=== PATIENT | female | born 1960 | race American Indian/Alaskan Native ===

== ENCOUNTER 2017-07-06 17:50 | Inpatient (IN) | payer MEDICAID ==
[2017-07-06] MEDS ORDERED: ATIVAN IM ONE (19:07)
[2017-07-06] MEDS ORDERED: HALDOL IM ONE (19:07)
[2017-07-06] MEDS ORDERED: ATIVAN IV ONE (20:20)
[2017-07-06 20:24] LABS: Basophils % (Auto) 0.3 % (0.0-1.8); Eosinophils % (Auto) 0.1 % (0.0-4.3); Hematocrit 40.1 % (30.3-42.9); Hemoglobin 13.3 gm/dl (10.1-14.3); Lymphocytes # (Auto) 2.3 K/mm3 (1.2-5.4); Lymphocytes % (Auto) 16.6 % (13.4-35.0); Mean Corpuscular HGB Conc 33 % (30-34); Mean Corpuscular Hemoglobin 30 pg (28-32); Mean Corpuscular Volume 90 fl (79-97); Monocytes # (Auto) 1.2 K/mm3 (0.0-0.8); Monocytes % (Auto) 8.4 % (0.0-7.3); Platelet Count 212 K/mm3 (140-440); Red Blood Count 4.46 M/mm3 (3.65-5.03); Red Cell Distribution Width 13.4 % (13.2-15.2)
[2017-07-06 20:40] LABS: Albumin 4.1 g/dL (3.9-5); Calcium 9.7 mg/dL (8.4-10.2)
[2017-07-06 21:19] LABS: Bacteria,Urine 1+ /HPF (Negative); Bilirubin,Urine NEG (Negative); Blood,Urine NEG (Negative); Color,Urine Amber (Yellow); Mucus,Urine 1+ /HPF; Nitrite,Urine NEG (Negative)
[2017-07-06 21:30] LABS: Amphetamine Screen,Urine PRESUMPTIVE NEGATIVE; Benzodiazepines Screen,Urine PRESUMPTIVE NEGATIVE; Cannabinoid Screen,Urine PRESUMPTIVE NEGATIVE; Cocaine Screen,Urine PRESUMPTIVE NEGATIVE; Methadone Screen,Urine PRESUMPTIVE NEGATIVE; Opiate Screen,Urine PRESUMPTIVE NEGATIVE
--- NOTE | 2017-07-06 21:53 | Emergency Department Report ---
ED Altered Mental Status HPI - General Chief Complaint: Altered Mental Status Stated Complaint: DEMENTIA EPISODE Time Seen by Provider: 07/06/17 18:49 Source: family, EMS Mode of arrival: Stretcher Limitations: Altered Mental Status - History of Present Illness Initial Comments: This is a 57 y/o female who lives with her daughter, and apparently has a history of dementia, and has not been on her medications for this for over two years, who over the last few days has had worsening of her mental symptoms. The family reports that "she needs help." The patient is not able to give a history. MD Complaint: altered mental status, confusion -: Gradual Severity: severe Context: unknown Associated Symptoms: other (Patient cannot communicate her symptoms) - Related Data Allergies Allergy/AdvReac Type Severity Reaction Status Date / Time No Known Allergies Allergy Unverified 07/06/17 18:48 ED Review of Systems ROS: Stated complaint: DEMENTIA EPISODE Other details as noted in HPI Comment: Unobtainable due to pts medical conditions ED Past Medical Hx - Past Medical History Previous Medical History?: Yes Hx Hypertension: Yes Hx CVA: Yes (2013) Hx Dementia: Yes Additional medical history: heat stroke - Surgical History Past Surgical History?: No - Social History Smoking Status: Unknown if ever smoked Substance Use Type: None ED Physical Exam - General Limitations: Altered Mental Status General appearance: other (shaking, tremors, does not appear to be seizure activity. ) - Head Head exam: Present: atraumatic - Eye Eye exam: Present: normal appearance, PERRL - ENT ENT exam: Present: normal exam - Neck Neck exam: Present: normal inspection - Respiratory Respiratory exam: Present: normal lung sounds bilaterally. Absent: respiratory distress, wheezes, rales, rhonchi - Cardiovascular Cardiovascular Exam: Present: normal rhythm, tachycardia - GI/Abdominal GI/Abdominal exam: Present: soft, diminished bowel sounds - Extremities Exam Extremities exam: Present: normal inspection, full ROM - Back Exam Back exam: Present: normal inspection - Neurological Exam Neurological exam: Present: altered - Skin Skin exam: Present: warm, dry, intact ED Course Vital Signs 07/06/17 07/06/17 07/06/17 18:37 18:50 19:01 Temperature 99 F Pulse Rate 120 H Respiratory 20 Rate Blood Pressure 167/113 167/113 149/118 O2 Sat by Pulse 96 Oximetry 07/06/17 07/06/17 07/06/17 20:21 20:30 20:45 Temperature Pulse Rate Respiratory Rate Blood Pressure 149/118 100/62 108/73 O2 Sat by Pulse 96 96 95 Oximetry 07/06/17 07/06/17 07/06/17 21:00 21:15 21:30 Temperature Pulse Rate Respiratory Rate Blood Pressure 130/88 98/62 99/59 O2 Sat by Pulse 93 95 Oximetry 07/06/17 07/06/17 21:45 22:00 Temperature Pulse Rate Respiratory Rate Blood Pressure 99/63 100/61 O2 Sat by Pulse 96 96 Oximetry - Reevaluation(s) Reevaluation #1: 07/06/17 23:29 Family did leave after initial assessment. No one can give us additional history at this time. 07/07/17 01:08 The patient has an elevated white count and appears to have a UTI. She is not necessarily septic at this time. However, because of her dementia and her lack of treatment of this dementia, I believe it is appropriate to admit the patient at this time. I discussed the case with hospitalist who agrees. - Lab Data Result diagrams: 07/06/17 20:10 07/06/17 20:10 Lab Results 07/06/17 07/06/17 07/06/17 Range/Units 19:00 20:10 20:10 WBC 13.8 H (4.5-11.0) K/mm3 RBC 4.46 (3.65-5.03) M/mm3 Hgb 13.3 (10.1-14.3) gm/dl Hct 40.1 (30.3-42.9) % MCV 90 (79-97) fl MCH 30 (28-32) pg MCHC 33 (30-34) % RDW 13.4 (13.2-15.2) % Plt Count 212 (140-440) K/mm3 Lymph % (Auto) 16.6 (13.4-35.0) % [place] % (Auto) 8.4 H (0.0-7.3) % Eos % (Auto) 0.1 (0.0-4.3) % Baso % (Auto) 0.3 (0.0-1.8) % Lymph # 2.3 (1.2-5.4) K/mm3 [place] # 1.2 H (0.0-0.8) K/mm3 Eos # 0.0 (0.0-0.4) K/mm3 Baso # 0.0 (0.0-0.1) K/mm3 Seg Neutrophils % 74.6 H (40.0-70.0) % Seg Neutrophils # 10.3 H (1.8-7.7) K/mm3 Sodium 138 (137-145) mmol/L Potassium 4.3 (3.6-5.0) mmol/L Chloride 96.7 L (98-107) mmol/L Carbon Dioxide 24 (22-30) mmol/L Anion Gap 22 mmol/L BUN 24 H (7-17) mg/dL Creatinine 1.5 H (0.7-1.2) mg/dL Estimated GFR 43 ml/min BUN/Creatinine Ratio 16 % Glucose 122 H (65-100) mg/dL POC Glucose 133 H (70-105) Lactic Acid (0.7-2.0) mmol/L Calcium 9.7 (8.4-10.2) mg/dL Total Bilirubin 0.70 (0.1-1.2) mg/dL AST 22 (5-40) units/L ALT 10 (7-56) units/L Alkaline Phosphatase 107 (35-129) units/L Total Protein 7.8 (6.3-8.2) g/dL Albumin 4.1 (3.9-5) g/dL Albumin/Globulin Ratio 1.1 % TSH (0.270-4.200) mlU/mL Urine Color (Yellow) Urine Turbidity (Clear) Urine pH (5.0-7.0) Ur Specific [place] (1.003-1.030) Urine Protein (Negative) mg/dL Urine Glucose (UA) (Negative) mg/dL Urine Ketones (Negative) mg/dL Urine Blood (Negative) Urine Nitrite (Negative) Urine Bilirubin (Negative) Urine Urobilinogen (<2.0) mg/dL Ur Leukocyte Esterase (Negative) Urine WBC (Auto) (0.0-6.0) /HPF Urine RBC (Auto) (0.0-6.0) /HPF U Epithel Cells (Auto) (0-13.0) /HPF Urine Bacteria (Auto) (Negative) /HPF Urine Mucus /HPF Urine Opiates Screen Urine Methadone Screen Ur Barbiturates Screen Ur Phencyclidine Scrn Ur Amphetamines Screen U Benzodiazepines Scrn Urine Cocaine Screen U Marijuana (THC) Screen Drugs of Abuse Note Plasma/Serum Alcohol (0-0.07) % 07/06/17 07/06/17 07/06/17 Range/Units 20:10 20:10 21:00 WBC (4.5-11.0) K/mm3 RBC (3.65-5.03) M/mm3 Hgb (10.1-14.3) gm/dl Hct (30.3-42.9) % MCV (79-97) fl MCH (28-32) pg MCHC (30-34) % RDW (13.2-15.2) % Plt Count (140-440) K/mm3 Lymph % (Auto) (13.4-35.0) % [place] % (Auto) (0.0-7.3) % Eos % (Auto) (0.0-4.3) % Baso % (Auto) (0.0-1.8) % Lymph # (1.2-5.4) K/mm3 [place] # (0.0-0.8) K/mm3 Eos # (0.0-0.4) K/mm3 Baso # (0.0-0.1) K/mm3 Seg Neutrophils % (40.0-70.0) % Seg Neutrophils # (1.8-7.7) K/mm3 Sodium (137-145) mmol/L Potassium (3.6-5.0) mmol/L Chloride (98-107) mmol/L Carbon Dioxide (22-30) mmol/L Anion Gap mmol/L BUN (7-17) mg/dL Creatinine (0.7-1.2) mg/dL Estimated GFR ml/min BUN/Creatinine Ratio % Glucose (65-100) mg/dL POC Glucose (70-105) Lactic Acid (0.7-2.0) mmol/L Calcium (8.4-10.2) mg/dL Total Bilirubin (0.1-1.2) mg/dL AST (5-40) units/L ALT (7-56) units/L Alkaline Phosphatase (35-129) units/L Total Protein (6.3-8.2) g/dL Albumin (3.9-5) g/dL Albumin/Globulin Ratio % TSH 0.750 (0.270-4.200) mlU/mL Urine Color [place] (Yellow) Urine Turbidity Clear (Clear) Urine pH 5.0 (5.0-7.0) Ur Specific [place] 1.023 (1.003-1.030) Urine Protein 100 mg/dl (Negative) mg/dL Urine Glucose (UA) Neg (Negative) mg/dL Urine Ketones Neg (Negative) mg/dL Urine Blood Neg (Negative) Urine Nitrite Neg (Negative) Urine Bilirubin Neg (Negative) Urine Urobilinogen 4.0 (<2.0) mg/dL Ur Leukocyte Esterase Lg (Negative) Urine WBC (Auto) 99.0 H (0.0-6.0) /HPF Urine RBC (Auto) 19.0 (0.0-6.0) /HPF U Epithel Cells (Auto) 3.0 (0-13.0) /HPF Urine Bacteria (Auto) 1+ (Negative) /HPF Urine Mucus 1+ /HPF Urine Opiates Screen Urine Methadone Screen Ur Barbiturates Screen Ur Phencyclidine Scrn Ur Amphetamines Screen U Benzodiazepines Scrn Urine Cocaine Screen U Marijuana (THC) Screen Drugs of Abuse Note Plasma/Serum Alcohol < 0.01 (0-0.07) % 07/06/17 07/06/17 Range/Units 21:00 23:36 WBC (4.5-11.0) K/mm3 RBC (3.65-5.03) M/mm3 Hgb (10.1-14.3) gm/dl Hct (30.3-42.9) % MCV (79-97) fl MCH (28-32) pg MCHC (30-34) % RDW (13.2-15.2) % Plt Count (140-440) K/mm3 Lymph % (Auto) (13.4-35.0) % [place] % (Auto) (0.0-7.3) % Eos % (Auto) (0.0-4.3) % Baso % (Auto) (0.0-1.8) % Lymph # (1.2-5.4) K/mm3 [place] # (0.0-0.8) K/mm3 Eos # (0.0-0.4) K/mm3 Baso # (0.0-0.1) K/mm3 Seg Neutrophils % (40.0-70.0) % Seg Neutrophils # (1.8-7.7) K/mm3 Sodium (137-145) mmol/L Potassium (3.6-5.0) mmol/L Chloride (98-107) mmol/L Carbon Dioxide (22-30) mmol/L Anion Gap mmol/L BUN (7-17) mg/dL Creatinine (0.7-1.2) mg/dL Estimated GFR ml/min BUN/Creatinine Ratio % Glucose (65-100) mg/dL POC Glucose (70-105) Lactic Acid 1.00 (0.7-2.0) mmol/L Calcium (8.4-10.2) mg/dL Total Bilirubin (0.1-1.2) mg/dL AST (5-40) units/L ALT (7-56) units/L Alkaline Phosphatase (35-129) units/L Total Protein (6.3-8.2) g/dL Albumin (3.9-5) g/dL Albumin/Globulin Ratio % TSH (0.270-4.200) mlU/mL Urine Color (Yellow) Urine Turbidity (Clear) Urine pH (5.0-7.0) Ur Specific [place] (1.003-1.030) Urine Protein (Negative) mg/dL Urine Glucose (UA) (Negative) mg/dL Urine Ketones (Negative) mg/dL Urine Blood (Negative) Urine Nitrite (Negative) Urine Bilirubin (Negative) Urine Urobilinogen (<2.0) mg/dL Ur Leukocyte Esterase (Negative) Urine WBC (Auto) (0.0-6.0) /HPF Urine RBC (Auto) (0.0-6.0) /HPF U Epithel Cells (Auto) (0-13.0) /HPF Urine Bacteria (Auto) (Negative) /HPF Urine Mucus /HPF Urine Opiates Screen Presumptive negative Urine Methadone Screen Presumptive negative Ur Barbiturates Screen Presumptive negative Ur Phencyclidine Scrn Presumptive negative Ur Amphetamines Screen Presumptive negative U Benzodiazepines Scrn Presumptive negative Urine Cocaine Screen Presumptive negative U Marijuana (THC) Screen Presumptive negative Drugs of Abuse Note Disclamer Plasma/Serum Alcohol (0-0.07) % Critical care attestation.: If time is entered above; I have spent that time in minutes in the direct care of this critically ill patient, excluding procedure time. ED Disposition Clinical Impression: UTI (urinary tract infection) Qualifiers: Urinary tract infection type: acute cystitis Hematuria presence: without hematuria Qualified Code(s): N30.00 - Acute cystitis without hematuria Dementia Qualifiers: Dementia type: unspecified type Dementia behavioral disturbance: without behavioral disturbance Qualified Code(s): F03.90 - Unspecified dementia without behavioral disturbance Disposition: OP ADMIT IP TO THIS HOSP Is pt being admited?: Yes Condition: Stable Referrals: ALBAN GOMEZ MD [Primary Care Provider] - 3-5 Days
[2017-07-06] MEDS ORDERED: NACL 0.9% 1000 ML 1,000 ML IV ONE (23:14)
--- NOTE | 2017-07-07 00:50 | Cat Scan Report ---
FINAL REPORT EXAM: CT HEAD/BRAIN WO CON HISTORY: altered mental status COMPARISON: None available. TECHNIQUE: Axial images obtained skull base through vertex. FINDINGS: No acute intracranial hemorrhage, midline shift or pathologic extra axial fluid collection. Ventricles and cisterns are normal in size and configuration for the patient's age. Dougherty-white differentiation preserved. Calvarium grossly intact. Benign calcification bilateral basal ganglia. Mild calcification of the carotid siphons. Visualized orbits are grossly unremarkable. Benign osteomas within left frontal sinus. Mild mucosal thickening of the ethmoid air cells. Remote fracture of the medial wall left orbital rim. IMPRESSION: No grossly acute intracranial abnormality.
--- NOTE | 2017-07-07 01:00 | Cat Scan Report ---
FINAL REPORT EXAM: CT ABDOMEN PELVIS WO CON HISTORY: abd pain TECHNIQUE: Routine axial imaging was obtained of the abdomen and pelvis without oral or IV contrast. Sagittal and coronal reconstructions were reviewed. FINDINGS: The study is compromised by breathing motion artifact. The lung bases are clear. Pleural fluid is not seen. There is a small hiatal hernia. The liver, gallbladder, pancreas, spleen, and adrenal glands appear normal. The kidneys show no evidence of stones or hydronephrosis. There calcification of the abdominal aorta. The bowel loops are normal in caliber and course. The appendix is not enlarged. There marked enlargement of the uterus which has a lobulated contour and multiple calcifications compatible with numerous fibroids. There is no evidence of free fluid or adenopathy. The bladder is compressed by the enlarged uterus. The skeletal structures reveal arthritic changes lumbar spine. IMPRESSION: No acute process in the abdomen and pelvis. Markedly enlarged fibroid uterus. Small hiatal hernia.
[2017-07-07] MEDS ORDERED: DULCOLAX PR PRN (03:21)
[2017-07-07] MEDS ORDERED: MILK OF MAGNESIA PO PRN (03:21)
[2017-07-07] MEDS ORDERED: TYLENOL PO PRN (03:21)
[2017-07-07] MEDS ORDERED: ZOFRAN IV PRN (03:21)
[2017-07-07] MEDS ORDERED: ROCEPHIN/NS 1 GM/50 ML 1 GM/50 ML BAG IV SCH (04:00)
[2017-07-07] MEDS: cefTRIAXone 1 GM in NACL 0.9% 20 ML IV SCH (04:30)
--- NOTE | 2017-07-07 04:53 | History and Physical Report ---
History of Present Illness Date of examination: 07/07/17 Date of admission: 07/07/17 03:21 History of present illness: This is a 57-year-old woman with a history of dementia was brought to the emergency room by family because they're unable to care for the patient. Patient is unable to give a history, review of systems unobtainable. Unable to reach family PAST MEDICAL HISTORY: dementia PAST SURGICAL HISTORY: Unknown FAMILY HISTORY: Unknown SOCIAL HISTORY: Unknown Medications and Allergies Allergies Allergy/AdvReac Type Severity Reaction Status Date / Time No Known Allergies Allergy Verified 07/07/17 03:39 Active Meds: Active Medications Acetaminophen (Tylenol) 650 mg PO Q4H PRN PRN Reason: Pain MILD(1-3)/Fever >100.5/[place] Bisacodyl (Dulcolax) 10 mg ND QDAY PRN PRN Reason: Constipation unrelieved by MOM Enoxaparin Sodium (Lovenox) 40 mg SUB-Q QDAY@1000 [place] Ceftriaxone Sodium 1 gm/ (Sodium Chloride) 20 mls @ 20 mls/10 min IV Q24H MALCOL[place] Last Admin: 07/07/17 04:30 Dose: 20 mls/10 min Magnesium Hydroxide (Milk Of Magnesia) 30 ml PO Q4H PRN PRN Reason: Constipation Ondansetron HCl (Zofran) 4 mg IV Q8H PRN PRN Reason: N/V unrelieved by Reglan Exam - Physical Exam Narrative exam: Gen. appearance: Patient lying in bed in no acute distress HEENT: Normocephalic/atraumatic, pupils equal round reactive to light, extra occular movement intact, no scleral icterus, no JVD or thyromegaly or nodule, neck is supple, mucous membrane moist, no erythema or exudate Heart: S1-S2, regular rate and rhythm Lungs: Clear to auscultation bilateral breathing comfortable Abdomen: Positive bowel sounds, nontender, nondistended, no organomegaly Extremities: No edema, cyanosis, clubbing Neuro:: Unable to examine Skin: No rash, nodules, warm dry - Constitutional Vitals: Temp Pulse Resp BP Pulse Ox 99 F 120 H 20 106/70 98 07/06/17 18:37 07/06/17 18:37 07/06/17 18:37 07/07/17 02:15 07/07/17 02:15 Results - Labs CBC & Chem 7: 07/06/17 20:10 07/06/17 20:10 Labs: Abnormal lab results 07/06/17 07/06/17 07/06/17 Range/Units 19:00 20:10 20:10 WBC 13.8 H (4.5-11.0) K/mm3 [place] % (Auto) 8.4 H (0.0-7.3) % [place] # 1.2 H (0.0-0.8) K/mm3 Seg Neutrophils % 74.6 H (40.0-70.0) % Seg Neutrophils # 10.3 H (1.8-7.7) K/mm3 Chloride 96.7 L (98-107) mmol/L BUN 24 H (7-17) mg/dL Creatinine 1.5 H (0.7-1.2) mg/dL Glucose 122 H (65-100) mg/dL POC Glucose 133 H (70-105) Urine WBC (Auto) (0.0-6.0) /HPF 07/06/17 Range/Units 21:00 WBC (4.5-11.0) K/mm3 [place] % (Auto) (0.0-7.3) % [place] # (0.0-0.8) K/mm3 Seg Neutrophils % (40.0-70.0) % Seg Neutrophils # (1.8-7.7) K/mm3 Chloride (98-107) mmol/L BUN (7-17) mg/dL Creatinine (0.7-1.2) mg/dL Glucose (65-100) mg/dL POC Glucose (70-105) Urine WBC (Auto) 99.0 H (0.0-6.0) /HPF - Imaging and Cardiology CT scan - abdomen: report reviewed CT Scan - head: report reviewed CT scan - pelvis: report reviewed Assessment and Plan Assessment Worsening dementia UTI Plan Admit to medicine Start IV Rocephin, IV fluids, DVT prophylaxis Consult case management
[2017-07-07] MEDS ORDERED: LOVENOX SUB-Q SCH (10:00)
[2017-07-07] MEDS: LOVENOX SUB-Q SCH (10:51)
[2017-07-07] MEDS: NACL 0.9% 1000 ML 1,000 ML IV SCH (10:51)
[2017-07-07] MEDS: APRESOLINE IV PRN (20:52)
[2017-07-08] MEDS: NACL 0.9% 1000 ML 1,000 ML IV SCH ×2 (00:20→13:19)
[2017-07-08] MEDS: cefTRIAXone 1 GM in NACL 0.9% 20 ML IV SCH (04:28)
[2017-07-08 05:42] LABS: Basophils % (Auto) 0.6 % (0.0-1.8); Eosinophils % (Auto) 0.7 % (0.0-4.3); Hematocrit 36.4 % (30.3-42.9); Hemoglobin 12.3 gm/dl (10.1-14.3); Lymphocytes # (Auto) 1.5 K/mm3 (1.2-5.4); Lymphocytes % (Auto) 25.7 % (13.4-35.0); Mean Corpuscular HGB Conc 34 % (30-34); Mean Corpuscular Hemoglobin 30 pg (28-32); Mean Corpuscular Volume 90 fl (79-97); Monocytes # (Auto) 0.6 K/mm3 (0.0-0.8); Platelet Count 147 K/mm3 (140-440); Red Blood Count 4.06 M/mm3 (3.65-5.03); Red Cell Distribution Width 13.3 % (13.2-15.2)
[2017-07-08 05:58] LABS: BUN/Creatinine Ratio 23; Blood Urea Nitrogen 16 mg/dL (7-17); Calcium 8.9 mg/dL (8.4-10.2); Hemolysis Index 3
[2017-07-08] MEDS: APRESOLINE IV PRN ×2 (08:33→20:37)
--- NOTE | 2017-07-08 14:06 | Progress Note ---
Assessment and Plan Assessment and plan: This is a 57-year-old woman with a history of dementia was brought to the emergency room by family because they're unable to care for the patient. Patient is unable to give a history, review of systems unobtainable. Unable to reach family Problems * UTI * Dementia * Metabolic encephalopathy * Sepsis * Debility Plan * Continue antibiotics, follow urine cultures * Case management for SNIF placement * Continue supportive care History Interval history: Patient is nonverbal, she continues to mumble incoherently, nonsense speech. Not able to converse or really any symptoms No fevers, no seizures, no signs of discomforts, no shortness of breath, no vomiting, no diarrhea Hospitalist Physical - Physical exam Narrative exam: General.: Appears well, no distress, nontoxic HEENT: Moist mucous membranes, extraocular muscles intact, no lymphadenopathy Neck: supple Cardiac: S1-S2 heard Lungs: clear to auscultation bilaterally Abdomen: soft , nontender, nondistended, bowel sounds positive Extremities: no edema clubbing or cyanosis Skin: no rash or lesions Neurologic: demented, unable to answer any questions, mumbling incoherently. "Nonsense speech" - Constitutional Vitals: Temp Pulse Resp BP Pulse Ox 98.6 F 95 H 19 171/112 97 07/08/17 08:13 07/08/17 06:21 07/08/17 08:13 07/08/17 08:13 07/08/17 06:21 Results - Labs CBC & Chem 7: 07/08/17 05:25 07/08/17 05:25 Labs: Laboratory Last Values WBC 5.7 K/mm3 (4.5-11.0) 07/08/17 05:25 RBC 4.06 M/mm3 (3.65-5.03) 07/08/17 05:25 Hgb 12.3 gm/dl (10.1-14.3) 07/08/17 05:25 Hct 36.4 % (30.3-42.9) 07/08/17 05:25 MCV 90 fl (79-97) 07/08/17 05:25 MCH 30 pg (28-32) 07/08/17 05:25 MCHC 34 % (30-34) 07/08/17 05:25 RDW 13.3 % (13.2-15.2) 07/08/17 05:25 Plt Count 147 K/mm3 (140-440) 07/08/17 05:25 Lymph % (Auto) 25.7 % (13.4-35.0) 07/08/17 05:25 [place] % (Auto) 10.0 % (0.0-7.3) H 07/08/17 05:25 Eos % (Auto) 0.7 % (0.0-4.3) 07/08/17 05:25 Baso % (Auto) 0.6 % (0.0-1.8) 07/08/17 05:25 Lymph # 1.5 K/mm3 (1.2-5.4) 07/08/17 05:25 [place] # 0.6 K/mm3 (0.0-0.8) 07/08/17 05:25 Eos # 0.0 K/mm3 (0.0-0.4) 07/08/17 05:25 Baso # 0.0 K/mm3 (0.0-0.1) 07/08/17 05:25 Seg Neutrophils % 63.0 % (40.0-70.0) 07/08/17 05:25 Seg Neutrophils # 3.6 K/mm3 (1.8-7.7) 07/08/17 05:25 Sodium 145 mmol/L (137-145) D 07/08/17 05:25 Potassium 3.5 mmol/L (3.6-5.0) L 07/08/17 05:25 Chloride 108.9 mmol/L (98-107) H 07/08/17 05:25 Carbon Dioxide 23 mmol/L (22-30) 07/08/17 05:25 Anion Gap 17 mmol/L 07/08/17 05:25 BUN 16 mg/dL (7-17) 07/08/17 05:25 Creatinine 0.7 mg/dL (0.7-1.2) D 07/08/17 05:25 Estimated GFR > 60 ml/min 07/08/17 05:25 BUN/Creatinine Ratio 23 % 07/08/17 05:25 Glucose 107 mg/dL (65-100) H 07/08/17 05:25 POC Glucose 133 (70-105) H 07/06/17 19:00 Lactic Acid 1.00 mmol/L (0.7-2.0) 07/06/17 23:36 Calcium 8.9 mg/dL (8.4-10.2) 07/08/17 05:25 Total Bilirubin 0.70 mg/dL (0.1-1.2) 07/06/17 20:10 AST 22 units/L (5-40) 07/06/17 20:10 ALT 10 units/L (7-56) 07/06/17 20:10 Alkaline Phosphatase 107 units/L (35-129) 07/06/17 20:10 Total Protein 7.8 g/dL (6.3-8.2) 07/06/17 20:10 Albumin 4.1 g/dL (3.9-5) 07/06/17 20:10 Albumin/Globulin Ratio 1.1 % 07/06/17 20:10 TSH 0.750 mlU/mL (0.270-4.200) 07/06/17 20:10 Urine Color [place] (Yellow) 07/06/17 21:00 Urine Turbidity Clear (Clear) 07/06/17 21:00 Urine pH 5.0 (5.0-7.0) 07/06/17 21:00 Ur Specific [place] 1.023 (1.003-1.030) 07/06/17 21:00 Urine Protein 100 mg/dl mg/dL (Negative) 07/06/17 21:00 Urine Glucose (UA) Neg mg/dL (Negative) 07/06/17 21:00 Urine Ketones Neg mg/dL (Negative) 07/06/17 21:00 Urine Blood Neg (Negative) 07/06/17 21:00 Urine Nitrite Neg (Negative) 07/06/17 21:00 Urine Bilirubin Neg (Negative) 07/06/17 21:00 Urine Urobilinogen 4.0 mg/dL (<2.0) 07/06/17 21:00 Ur Leukocyte Esterase Lg (Negative) 07/06/17 21:00 Urine WBC (Auto) 99.0 /HPF (0.0-6.0) H 07/06/17 21:00 Urine RBC (Auto) 19.0 /HPF (0.0-6.0) 07/06/17 21:00 U Epithel Cells (Auto) 3.0 /HPF (0-13.0) 07/06/17 21:00 Urine Bacteria (Auto) 1+ /HPF (Negative) 07/06/17 21:00 Urine Mucus 1+ /HPF 07/06/17 21:00 Urine Opiates Screen Presumptive negative 07/06/17 21:00 Urine Methadone Screen Presumptive negative 07/06/17 21:00 Ur Barbiturates Screen Presumptive negative 07/06/17 21:00 Ur Phencyclidine Scrn Presumptive negative 07/06/17 21:00 Ur Amphetamines Screen Presumptive negative 07/06/17 21:00 U Benzodiazepines Scrn Presumptive negative 07/06/17 21:00 Urine Cocaine Screen Presumptive negative 07/06/17 21:00 U Marijuana (THC) Screen Presumptive negative 07/06/17 21:00 Drugs of Abuse Note Disclamer 07/06/17 21:00 Plasma/Serum Alcohol < 0.01 % (0-0.07) 07/06/17 20:10
[2017-07-08] MEDS: LOVENOX SUB-Q SCH (20:49)
[2017-07-09] MEDS: cefTRIAXone 1 GM in NACL 0.9% 20 ML IV SCH (03:21)
[2017-07-09] MEDS: NACL 0.9% 1000 ML 1,000 ML IV SCH (08:37)
[2017-07-09] MEDS: LOVENOX SUB-Q SCH (09:16)
[2017-07-09] MEDS: APRESOLINE IV PRN ×2 (11:30→21:46)
--- NOTE | 2017-07-09 21:30 | Progress Note ---
Assessment and Plan Assessment and plan: This is a 57-year-old woman with a history of dementia was brought to the emergency room by family because they're unable to care for the patient. Patient is unable to give a history, review of systems unobtainable. Unable to reach family Problems * UTI * Dementia * Metabolic encephalopathy * Sepsis * Debility Plan * Continue antibiotics, follow urine cultures * Case management for SNIF placement * Continue supportive care * Placement planned for Wednesday or Wednesday, family has consented to placement History Interval history: Patient remains demented, able to state her name, otherwise not communicating any complaints or symptoms No fevers, no seizures, no signs of discomforts, no shortness of breath, no vomiting, no diarrhea Hospitalist Physical - Physical exam Narrative exam: General.: Appears well, no distress, nontoxic HEENT: Moist mucous membranes, extraocular muscles intact, no lymphadenopathy Neck: supple Cardiac: S1-S2 heard Lungs: clear to auscultation bilaterally Abdomen: soft , nontender, nondistended, bowel sounds positive Extremities: no edema clubbing or cyanosis Skin: no rash or lesions Neurologic: demented, able to state her name when asked, otheriwise is not able to hold any meaninful conversation, confused at baseline - Constitutional Vitals: Temp Pulse Resp BP Pulse Ox 97.8 F 93 H 16 160/97 96 07/09/17 15:35 07/09/17 15:35 07/09/17 15:35 07/09/17 15:35 07/09/17 15:35 Results - Labs CBC & Chem 7: 07/08/17 05:25 07/08/17 05:25 Labs: Laboratory Last Values WBC 5.7 K/mm3 (4.5-11.0) 07/08/17 05:25 RBC 4.06 M/mm3 (3.65-5.03) 07/08/17 05:25 Hgb 12.3 gm/dl (10.1-14.3) 07/08/17 05:25 Hct 36.4 % (30.3-42.9) 07/08/17 05:25 MCV 90 fl (79-97) 07/08/17 05:25 MCH 30 pg (28-32) 07/08/17 05:25 MCHC 34 % (30-34) 07/08/17 05:25 RDW 13.3 % (13.2-15.2) 07/08/17 05:25 Plt Count 147 K/mm3 (140-440) 07/08/17 05:25 Lymph % (Auto) 25.7 % (13.4-35.0) 07/08/17 05:25 [place] % (Auto) 10.0 % (0.0-7.3) H 07/08/17 05:25 Eos % (Auto) 0.7 % (0.0-4.3) 07/08/17 05:25 Baso % (Auto) 0.6 % (0.0-1.8) 07/08/17 05:25 Lymph # 1.5 K/mm3 (1.2-5.4) 07/08/17 05:25 [place] # 0.6 K/mm3 (0.0-0.8) 07/08/17 05:25 Eos # 0.0 K/mm3 (0.0-0.4) 07/08/17 05:25 Baso # 0.0 K/mm3 (0.0-0.1) 07/08/17 05:25 Seg Neutrophils % 63.0 % (40.0-70.0) 07/08/17 05:25 Seg Neutrophils # 3.6 K/mm3 (1.8-7.7) 07/08/17 05:25 Sodium 145 mmol/L (137-145) D 07/08/17 05:25 Potassium 3.5 mmol/L (3.6-5.0) L 07/08/17 05:25 Chloride 108.9 mmol/L (98-107) H 07/08/17 05:25 Carbon Dioxide 23 mmol/L (22-30) 07/08/17 05:25 Anion Gap 17 mmol/L 07/08/17 05:25 BUN 16 mg/dL (7-17) 07/08/17 05:25 Creatinine 0.7 mg/dL (0.7-1.2) D 07/08/17 05:25 Estimated GFR > 60 ml/min 07/08/17 05:25 BUN/Creatinine Ratio 23 % 07/08/17 05:25 Glucose 107 mg/dL (65-100) H 07/08/17 05:25 POC Glucose 133 (70-105) H 07/06/17 19:00 Lactic Acid 1.00 mmol/L (0.7-2.0) 07/06/17 23:36 Calcium 8.9 mg/dL (8.4-10.2) 07/08/17 05:25 Total Bilirubin 0.70 mg/dL (0.1-1.2) 07/06/17 20:10 AST 22 units/L (5-40) 07/06/17 20:10 ALT 10 units/L (7-56) 07/06/17 20:10 Alkaline Phosphatase 107 units/L (35-129) 07/06/17 20:10 Total Protein 7.8 g/dL (6.3-8.2) 07/06/17 20:10 Albumin 4.1 g/dL (3.9-5) 07/06/17 20:10 Albumin/Globulin Ratio 1.1 % 07/06/17 20:10 TSH 0.750 mlU/mL (0.270-4.200) 07/06/17 20:10 Urine Color [place] (Yellow) 07/06/17 21:00 Urine Turbidity Clear (Clear) 07/06/17 21:00 Urine pH 5.0 (5.0-7.0) 07/06/17 21:00 Ur Specific [place] 1.023 (1.003-1.030) 07/06/17 21:00 Urine Protein 100 mg/dl mg/dL (Negative) 07/06/17 21:00 Urine Glucose (UA) Neg mg/dL (Negative) 07/06/17 21:00 Urine Ketones Neg mg/dL (Negative) 07/06/17 21:00 Urine Blood Neg (Negative) 07/06/17 21:00 Urine Nitrite Neg (Negative) 07/06/17 21:00 Urine Bilirubin Neg (Negative) 07/06/17 21:00 Urine Urobilinogen 4.0 mg/dL (<2.0) 07/06/17 21:00 Ur Leukocyte Esterase Lg (Negative) 07/06/17 21:00 Urine WBC (Auto) 99.0 /HPF (0.0-6.0) H 07/06/17 21:00 Urine RBC (Auto) 19.0 /HPF (0.0-6.0) 07/06/17 21:00 U Epithel Cells (Auto) 3.0 /HPF (0-13.0) 07/06/17 21:00 Urine Bacteria (Auto) 1+ /HPF (Negative) 07/06/17 21:00 Urine Mucus 1+ /HPF 07/06/17 21:00 Urine Opiates Screen Presumptive negative 07/06/17 21:00 Urine Methadone Screen Presumptive negative 07/06/17 21:00 Ur Barbiturates Screen Presumptive negative 07/06/17 21:00 Ur Phencyclidine Scrn Presumptive negative 07/06/17 21:00 Ur Amphetamines Screen Presumptive negative 07/06/17 21:00 U Benzodiazepines Scrn Presumptive negative 07/06/17 21:00 Urine Cocaine Screen Presumptive negative 07/06/17 21:00 U Marijuana (THC) Screen Presumptive negative 07/06/17 21:00 Drugs of Abuse Note Disclamer 07/06/17 21:00 Plasma/Serum Alcohol < 0.01 % (0-0.07) 07/06/17 20:10 C.trachomatis DNA (SDA) Not detected (Not Detected) 07/06/17 23:20 N.gonorrhoeae DNA (SDA) Not detected (Not Detected) 07/06/17 23:20
[2017-07-10] MEDS: cefTRIAXone 1 GM in NACL 0.9% 20 ML IV SCH (04:05)
[2017-07-10] MEDS: APRESOLINE IV PRN (06:26)
[2017-07-10] MEDS: NACL 0.9% 1000 ML 1,000 ML IV SCH ×2 (06:30→23:36)
[2017-07-10] MEDS: ZESTRIL PO SCH (09:09)
[2017-07-10] MEDS: LOVENOX SUB-Q SCH (09:10)
[2017-07-11] MEDS: cefTRIAXone 1 GM in NACL 0.9% 20 ML IV SCH (03:12)
[2017-07-11] MEDS: APRESOLINE IV PRN ×2 (06:47→17:29)
[2017-07-11] MEDS: ZESTRIL PO SCH (09:04)
[2017-07-11] MEDS: LOVENOX SUB-Q SCH (09:04)
--- NOTE | 2017-07-11 19:12 | Progress Note ---
Assessment and Plan Assessment and plan: This is a 57-year-old woman with a history of dementia was brought to the emergency room by family because they're unable to care for the patient. Patient is unable to give a history, review of systems unobtainable. Unable to reach family Problems * UTI * Dementia * Metabolic encephalopathy * Sepsis * Debility Plan * Continue antibiotics, follow urine cultures * Case management for SNIF placement * Continue supportive care * Placement planned for Wednesday or Wednesday, family has consented to placement History Interval history: Patient remains demented, able to state her name, otherwise not communicating any complaints or symptoms No fevers, no seizures, no signs of discomforts, no shortness of breath, no vomiting, no diarrhea Hospitalist Physical - Physical exam Narrative exam: General.: Appears well, no distress, nontoxic HEENT: Moist mucous membranes, extraocular muscles intact, no lymphadenopathy Neck: supple Cardiac: S1-S2 heard Lungs: clear to auscultation bilaterally Abdomen: soft , nontender, nondistended, bowel sounds positive Extremities: no edema clubbing or cyanosis Skin: no rash or lesions Neurologic: demented, able to state her name when asked, otheriwise is not able to hold any meaninful conversation, confused at baseline - Constitutional Vitals: Temp Pulse Resp BP Pulse Ox 98.2 F 109 H 18 142/73 94 07/11/17 17:09 07/11/17 18:53 07/11/17 18:48 07/11/17 18:48 07/11/17 10:00 Results - Labs CBC & Chem 7: 07/08/17 05:25 07/08/17 05:25 Labs: Laboratory Last Values WBC 5.7 K/mm3 (4.5-11.0) 07/08/17 05:25 RBC 4.06 M/mm3 (3.65-5.03) 07/08/17 05:25 Hgb 12.3 gm/dl (10.1-14.3) 07/08/17 05:25 Hct 36.4 % (30.3-42.9) 07/08/17 05:25 MCV 90 fl (79-97) 07/08/17 05:25 MCH 30 pg (28-32) 07/08/17 05:25 MCHC 34 % (30-34) 07/08/17 05:25 RDW 13.3 % (13.2-15.2) 07/08/17 05:25 Plt Count 147 K/mm3 (140-440) 07/08/17 05:25 Lymph % (Auto) 25.7 % (13.4-35.0) 07/08/17 05:25 [place] % (Auto) 10.0 % (0.0-7.3) H 07/08/17 05:25 Eos % (Auto) 0.7 % (0.0-4.3) 07/08/17 05:25 Baso % (Auto) 0.6 % (0.0-1.8) 07/08/17 05:25 Lymph # 1.5 K/mm3 (1.2-5.4) 07/08/17 05:25 [place] # 0.6 K/mm3 (0.0-0.8) 07/08/17 05:25 Eos # 0.0 K/mm3 (0.0-0.4) 07/08/17 05:25 Baso # 0.0 K/mm3 (0.0-0.1) 07/08/17 05:25 Seg Neutrophils % 63.0 % (40.0-70.0) 07/08/17 05:25 Seg Neutrophils # 3.6 K/mm3 (1.8-7.7) 07/08/17 05:25 Sodium 145 mmol/L (137-145) D 07/08/17 05:25 Potassium 3.5 mmol/L (3.6-5.0) L 07/08/17 05:25 Chloride 108.9 mmol/L (98-107) H 07/08/17 05:25 Carbon Dioxide 23 mmol/L (22-30) 07/08/17 05:25 Anion Gap 17 mmol/L 07/08/17 05:25 BUN 16 mg/dL (7-17) 07/08/17 05:25 Creatinine 0.7 mg/dL (0.7-1.2) D 07/08/17 05:25 Estimated GFR > 60 ml/min 07/08/17 05:25 BUN/Creatinine Ratio 23 % 07/08/17 05:25 Glucose 107 mg/dL (65-100) H 07/08/17 05:25 POC Glucose 108 (70-105) H 07/11/17 17:42 Lactic Acid 1.00 mmol/L (0.7-2.0) 07/06/17 23:36 Calcium 8.9 mg/dL (8.4-10.2) 07/08/17 05:25 Total Bilirubin 0.70 mg/dL (0.1-1.2) 07/06/17 20:10 AST 22 units/L (5-40) 07/06/17 20:10 ALT 10 units/L (7-56) 07/06/17 20:10 Alkaline Phosphatase 107 units/L (35-129) 07/06/17 20:10 Total Protein 7.8 g/dL (6.3-8.2) 07/06/17 20:10 Albumin 4.1 g/dL (3.9-5) 07/06/17 20:10 Albumin/Globulin Ratio 1.1 % 07/06/17 20:10 TSH 0.750 mlU/mL (0.270-4.200) 07/06/17 20:10 Urine Color [place] (Yellow) 07/06/17 21:00 Urine Turbidity Clear (Clear) 07/06/17 21:00 Urine pH 5.0 (5.0-7.0) 07/06/17 21:00 Ur Specific [place] 1.023 (1.003-1.030) 07/06/17 21:00 Urine Protein 100 mg/dl mg/dL (Negative) 07/06/17 21:00 Urine Glucose (UA) Neg mg/dL (Negative) 07/06/17 21:00 Urine Ketones Neg mg/dL (Negative) 07/06/17 21:00 Urine Blood Neg (Negative) 07/06/17 21:00 Urine Nitrite Neg (Negative) 07/06/17 21:00 Urine Bilirubin Neg (Negative) 07/06/17 21:00 Urine Urobilinogen 4.0 mg/dL (<2.0) 07/06/17 21:00 Ur Leukocyte Esterase Lg (Negative) 07/06/17 21:00 Urine WBC (Auto) 99.0 /HPF (0.0-6.0) H 07/06/17 21:00 Urine RBC (Auto) 19.0 /HPF (0.0-6.0) 07/06/17 21:00 U Epithel Cells (Auto) 3.0 /HPF (0-13.0) 07/06/17 21:00 Urine Bacteria (Auto) 1+ /HPF (Negative) 07/06/17 21:00 Urine Mucus 1+ /HPF 07/06/17 21:00 Urine Opiates Screen Presumptive negative 07/06/17 21:00 Urine Methadone Screen Presumptive negative 07/06/17 21:00 Ur Barbiturates Screen Presumptive negative 07/06/17 21:00 Ur Phencyclidine Scrn Presumptive negative 07/06/17 21:00 Ur Amphetamines Screen Presumptive negative 07/06/17 21:00 U Benzodiazepines Scrn Presumptive negative 07/06/17 21:00 Urine Cocaine Screen Presumptive negative 07/06/17 21:00 U Marijuana (THC) Screen Presumptive negative 07/06/17 21:00 Drugs of Abuse Note Disclamer 07/06/17 21:00 Plasma/Serum Alcohol < 0.01 % (0-0.07) 07/06/17 20:10 C.trachomatis DNA (SDA) Not detected (Not Detected) 07/06/17 23:20 N.gonorrhoeae DNA (SDA) Not detected (Not Detected) 07/06/17 23:20
[2017-07-12] MEDS: cefTRIAXone 1 GM in NACL 0.9% 20 ML IV SCH (04:19)
[2017-07-12] MEDS: APRESOLINE IV PRN ×2 (06:41→14:08)
--- NOTE | 2017-07-12 10:52 | Progress Note ---
Assessment and Plan Assessment and plan: This is a 57-year-old woman with a history of dementia was brought to the emergency room by family because they're unable to care for the patient. Patient is unable to give a history, review of systems unobtainable. Unable to reach family Problems * UTI * Dementia * Metabolic encephalopathy * Sepsis * Debility Plan * has completed abx for rx of UTI * Case management for SNIF placement * Continue supportive care * awaiting placement, CM on board History Interval history: Patient remains demented, able to state her name, otherwise not communicating any complaints or symptoms No fevers, no seizures, no signs of discomforts, no shortness of breath, no vomiting, no diarrhea Hospitalist Physical - Physical exam Narrative exam: General.: Appears well, no distress, nontoxic HEENT: Moist mucous membranes, extraocular muscles intact, no lymphadenopathy Neck: supple Cardiac: S1-S2 heard Lungs: clear to auscultation bilaterally Abdomen: soft , nontender, nondistended, bowel sounds positive Extremities: no edema clubbing or cyanosis Skin: no rash or lesions Neurologic: demented, able to state her name when asked, otheriwise is not able to hold any meaninful conversation, confused at baseline - Constitutional Vitals: Temp Pulse Resp BP Pulse Ox 97.8 F 93 H 20 145/109 99 07/12/17 07:40 07/12/17 07:40 07/12/17 07:40 07/12/17 07:40 07/12/17 07:40 Results - Labs CBC & Chem 7: 07/08/17 05:25 07/08/17 05:25 Labs: Laboratory Last Values WBC 5.7 K/mm3 (4.5-11.0) 07/08/17 05:25 RBC 4.06 M/mm3 (3.65-5.03) 07/08/17 05:25 Hgb 12.3 gm/dl (10.1-14.3) 07/08/17 05:25 Hct 36.4 % (30.3-42.9) 07/08/17 05:25 MCV 90 fl (79-97) 07/08/17 05:25 MCH 30 pg (28-32) 07/08/17 05:25 MCHC 34 % (30-34) 07/08/17 05:25 RDW 13.3 % (13.2-15.2) 07/08/17 05:25 Plt Count 147 K/mm3 (140-440) 07/08/17 05:25 Lymph % (Auto) 25.7 % (13.4-35.0) 07/08/17 05:25 [place] % (Auto) 10.0 % (0.0-7.3) H 07/08/17 05:25 Eos % (Auto) 0.7 % (0.0-4.3) 07/08/17 05:25 Baso % (Auto) 0.6 % (0.0-1.8) 07/08/17 05:25 Lymph # 1.5 K/mm3 (1.2-5.4) 07/08/17 05:25 [place] # 0.6 K/mm3 (0.0-0.8) 07/08/17 05:25 Eos # 0.0 K/mm3 (0.0-0.4) 07/08/17 05:25 Baso # 0.0 K/mm3 (0.0-0.1) 07/08/17 05:25 Seg Neutrophils % 63.0 % (40.0-70.0) 07/08/17 05:25 Seg Neutrophils # 3.6 K/mm3 (1.8-7.7) 07/08/17 05:25 Sodium 145 mmol/L (137-145) D 07/08/17 05:25 Potassium 3.5 mmol/L (3.6-5.0) L 07/08/17 05:25 Chloride 108.9 mmol/L (98-107) H 07/08/17 05:25 Carbon Dioxide 23 mmol/L (22-30) 07/08/17 05:25 Anion Gap 17 mmol/L 07/08/17 05:25 BUN 16 mg/dL (7-17) 07/08/17 05:25 Creatinine 0.7 mg/dL (0.7-1.2) D 07/08/17 05:25 Estimated GFR > 60 ml/min 07/08/17 05:25 BUN/Creatinine Ratio 23 % 07/08/17 05:25 Glucose 107 mg/dL (65-100) H 07/08/17 05:25 POC Glucose 108 (70-105) H 07/11/17 17:42 Lactic Acid 1.00 mmol/L (0.7-2.0) 07/06/17 23:36 Calcium 8.9 mg/dL (8.4-10.2) 07/08/17 05:25 Total Bilirubin 0.70 mg/dL (0.1-1.2) 07/06/17 20:10 AST 22 units/L (5-40) 07/06/17 20:10 ALT 10 units/L (7-56) 07/06/17 20:10 Alkaline Phosphatase 107 units/L (35-129) 07/06/17 20:10 Total Protein 7.8 g/dL (6.3-8.2) 07/06/17 20:10 Albumin 4.1 g/dL (3.9-5) 07/06/17 20:10 Albumin/Globulin Ratio 1.1 % 07/06/17 20:10 TSH 0.750 mlU/mL (0.270-4.200) 07/06/17 20:10 Urine Color [place] (Yellow) 07/06/17 21:00 Urine Turbidity Clear (Clear) 07/06/17 21:00 Urine pH 5.0 (5.0-7.0) 07/06/17 21:00 Ur Specific [place] 1.023 (1.003-1.030) 07/06/17 21:00 Urine Protein 100 mg/dl mg/dL (Negative) 07/06/17 21:00 Urine Glucose (UA) Neg mg/dL (Negative) 07/06/17 21:00 Urine Ketones Neg mg/dL (Negative) 07/06/17 21:00 Urine Blood Neg (Negative) 07/06/17 21:00 Urine Nitrite Neg (Negative) 07/06/17 21:00 Urine Bilirubin Neg (Negative) 07/06/17 21:00 Urine Urobilinogen 4.0 mg/dL (<2.0) 07/06/17 21:00 Ur Leukocyte Esterase Lg (Negative) 07/06/17 21:00 Urine WBC (Auto) 99.0 /HPF (0.0-6.0) H 07/06/17 21:00 Urine RBC (Auto) 19.0 /HPF (0.0-6.0) 07/06/17 21:00 U Epithel Cells (Auto) 3.0 /HPF (0-13.0) 07/06/17 21:00 Urine Bacteria (Auto) 1+ /HPF (Negative) 07/06/17 21:00 Urine Mucus 1+ /HPF 07/06/17 21:00 Urine Opiates Screen Presumptive negative 07/06/17 21:00 Urine Methadone Screen Presumptive negative 07/06/17 21:00 Ur Barbiturates Screen Presumptive negative 07/06/17 21:00 Ur Phencyclidine Scrn Presumptive negative 07/06/17 21:00 Ur Amphetamines Screen Presumptive negative 07/06/17 21:00 U Benzodiazepines Scrn Presumptive negative 07/06/17 21:00 Urine Cocaine Screen Presumptive negative 07/06/17 21:00 U Marijuana (THC) Screen Presumptive negative 07/06/17 21:00 Drugs of Abuse Note Disclamer 07/06/17 21:00 Plasma/Serum Alcohol < 0.01 % (0-0.07) 07/06/17 20:10 C.trachomatis DNA (SDA) Not detected (Not Detected) 07/06/17 23:20 N.gonorrhoeae DNA (SDA) Not detected (Not Detected) 07/06/17 23:20
[2017-07-12] MEDS: LOVENOX SUB-Q SCH (11:23)
[2017-07-12] MEDS: ZESTRIL PO SCH (11:23)
[2017-07-13 08:45] VITALS: BP 153/101
[2017-07-13] MEDS ORDERED: NORVASC PO SCH (10:00)
[2017-07-13] MEDS: LOVENOX SUB-Q SCH (10:18)
[2017-07-13] MEDS: ZESTRIL PO SCH (10:19)
--- NOTE | 2017-07-13 12:52 | Discharge Summary ---
Providers - Providers Date of Admission: 07/07/17 03:21 Date of discharge: 07/13/17 Attending physician: THOMAS DALAL Primary care physician: ALBAN GOMEZ Hospitalization Condition: Stable Disposition: DC/[place]-06 HOME UNDER HOME [facility] Core Measure Documentation - Palliative Care Palliative Care/ Comfort Measures: Not Applicable - Core Measures Any of the following diagnoses?: none Exam - Constitutional Vitals: Temp Pulse Resp BP Pulse Ox 98.7 F 73 18 153/101 100 07/13/17 07:58 07/13/17 10:19 07/13/17 07:58 07/13/17 10:19 07/13/17 07:58 General appearance: Present: no acute distress, well-nourished - EENT Eyes: Present: PERRL, EOM intact - Neck Neck: Present: supple, normal ROM - Respiratory Respiratory effort: normal Respiratory: negative: rales, rhonchi, wheezing - Cardiovascular Rhythm: regular Heart Sounds: Present: S1 & S2 - Extremities Extremities: no ischemia, No edema - Abdominal General gastrointestinal: Present: soft, non-tender, non-distended, normal bowel sounds - Integumentary Integumentary: Present: clear, warm - Musculoskeletal Musculoskeletal: strength equal bilaterally - Psychiatric Psychiatric: appropriate mood/affect, cooperative - Neurologic Neurologic: CNII-XII intact, moves all extremities Plan Activity: no restrictions Diet: regular Follow up with: ALBAN GOMEZ MD [Primary Care Provider] - 3-5 Days Prescriptions: ALPRAZolam [Xanax TAB] 0.25 mg PO QHS PRN #7 tablet PRN Reason: Anxiety amLODIPine [Norvasc] 10 mg PO QDAY #30 tablet Lisinopril [Zestril TAB] 40 mg PO QDAY #30 tablet
[2017-07-13] MEDS ORDERED: XANAX PO PRN (13:00)
== END 2017-07-13 17:20 | disposition home health service (06) | DRG 871 ==
LOC: ED 17:50 → 3A 07-07 03:21 → 2B-ACE 07-07 07:08
PROVIDERS: ADMIT Internal Medicine; ATTEND Internal Medicine
DX: A41.9 Sepsis, unspecified organism (principal); G93.41 Metabolic encephalopathy; N39.0 Urinary tract infection, site not specified; F03.90 Unspecified dementia, unspecified severity, without behavioral disturbance, psychotic disturbance, mood disturbance, and anxiety; I10 Essential (primary) hypertension; Z86.73 Personal history of transient ischemic attack (TIA), and cerebral infarction without residual deficits; I25.2 Old myocardial infarction
CPT/HCPCS: 36415; 70450; 74176; 80048; 80053; 80307; 80320; 81001; 82140; 82962; 84443; 85025; 87086; 87210; 87591; 93005; 93010; 96361; 96372; 96374; G0480; J0360; J0696; J1630; J1650; J2060; J7030